=== PATIENT | female | born 1970 | race Caucasian/White ===

== ENCOUNTER → 2018-12-03 13:36 | Outpatient (CLI) | payer OTHER, SELFPAY ==
--- NOTE | 2018-12-03 13:39 | MR_ITS ---
MR shoulder LT wo con HISTORY:Left shoulder pain with limited range of motion, impingement ITS.REASON: LEFT SHOULER IMPINGEMENT ORDERING PHYSICIAN: Cleveland Boyd PATIENT AGE: 48 years Comparison: None TECHNIQUE: Standard multiplanar multiecho sequences are performed without contrast. FINDINGS: There is mild acromioclavicular arthropathy with bony hypertrophic changes at the acromioclavicular joint along with spurring of the subacromial region with resultant subacromial stenosis causing impingement upon the musculotendinous junction of the supraspinatus. There is thickening of the supraspinatus tendon distally with ill definition and increased T2 signal consistent with tendinopathy/tendinosis. There is discontinuity of the low signal intensity fibers distally consistent with at least a partial tear of the supraspinatus tendon posteriorly. There may be a few intact fibers. A full-thickness tear posteriorly cannot be excluded. The infraspinatus tendon has an unremarkable appearance as does the subscapularis and teres minor. No obvious labral tear. There is some minor subarticular cystic change of the humeral head posteriorly. No fracture or dislocation. IMPRESSION: 1. Acromioclavicular arthropathy with subacromial stenosis with impingement upon the supraspinatus tendon 2. At least a partial tear of the distal posterior aspect of the supraspinatus tendon. Cannot exclude a full-thickness tear posteriorly. A complete tear is not felt to be present
== END ==
PROVIDERS: PCP Family Medicine; Visit Provider Orthopaedic Surgery Adult Reconstructive Orthopaedic Surgery
DX: M75.42 Impingement syndrome of left shoulder (principal)
CPT/HCPCS: 73221

== ENCOUNTER → 2023-09-20 10:50 | Outpatient (CLI) | payer OTHER, SELFPAY | PROVIDERS: PCP Family Medicine; Visit Provider Specialist | DX: R20.2 Paresthesia of skin; E66.9 Obesity, unspecified; Z68.32 Body mass index [BMI] 32.0-32.9, adult; G47.33 Obstructive sleep apnea (adult) (pediatric) | CPT/HCPCS: G0399 ==

== ENCOUNTER 2024-11-29 08:10 | Outpatient (CLI) | payer MEDICARE, OTHER, SELFPAY ==
--- NOTE | 2024-11-29 08:10 | MR_ITS ---
FINAL REPORT CLINICAL HISTORY: lipoma. put marker on site. has been there for years but has gotten bigger. COMPARISON: None FINDINGS: Multiplanar MR imaging of the left clavicle was performed without and with contrast. There is a fatty mass in the left supraclavicular region accounting for enlarging mass measuring 89 x 49 x 79 mm. This is contained by thin capsule. The structure abuts the lower portion of the left SCM. No involvement of structures is seen. There are thin enhancing septations coursing through the abnormality. One septation is associated with mild nodular thickening measuring up to 2 x 4 mm, well seen on image 20 of series 10. There is no evidence of adenopathy. IMPRESSION: Benign-appearing lipoma without aggressive features accounting for enlarging mass or palpable abnormality. However, there is 1 septation associated with mild nodular thickening. MRI without and with contrast recommended to in six-months to follow-up. Reviewed, Interpreted and Dictated by Blessing Maldonado MD Transcribed by Shawna Esquivel Authenticated and [facility]
[2024-11-29] MEDS: GADOTERIDOL INJ 20ML SYRINGE 18 ML IV (09:12)
[2024-11-29] MEDS: SODIUM CHLORIDE 0.9% 10ML SYR (RAD ONLY) 10 ML IV (09:12)
== END 2024-11-29 23:59 | disposition home or self-care (01) ==
LOC: RAD 08:10
PROVIDERS: PCP Family Medicine; Visit Provider Surgery
DX: D17.9 Benign lipomatous neoplasm, unspecified (principal)
CPT/HCPCS: 73220; A9576

== ENCOUNTER 2024-12-25 09:46 | Outpatient (CLI) | payer MEDICARE, OTHER, SELFPAY ==
--- NOTE | 2024-12-25 10:20 | ECG_ITS ---
APPROVED REPORT Exam: Resting ECG HR:72 bpm ECG Measurements Heart Rate 72 AXES MT 135 P 20 QRSd 98 QRS 14 QT 366 T 10 QTc 390 Conclusion SINUS RHYTHM NORMAL ECG UNCONFIRMED REPORT Normal Electrocardiogram Electronically signed by : Jorge Luis Campbell MD 12/26/2024 09:09:50
[2024-12-25 10:23] VITALS: BMI 34.3
[2024-12-25 10:31] LABS: Basophils # 0.1 K/mm3 (0-0.2); Basophils % 0.5 % (0.1-2.0); Eosinophils # 0.1 K/mm3 (0.0-0.4); Eosinophils % 0.9 % (0.1-12.0); Hematocrit 42.4 % (37.0-47.0); Hemoglobin 13.8 g/dL (12.2-16.2); Lymphocytes # 2.7 K/mm3 (0.7-4.5); Mean Corpuscular HGB Conc 32.5 g/dL (31.8-35.4); Mean Corpuscular Hemoglobin 28.4 pg (27.0-31.2); Mean Corpuscular Volume 87.2 fl (81-99); Mean Platelet Volume 9.9 fl (7.4-10.4); Monocytes # 0.7 K/mm3 (0.1-1.0); Neutrophils % 63.3 % (37.0-80.0); Platelet Count 329 K/mm3 (142-424); Red Blood Count 4.86 M/mm3 (4.20-5.40); Red Cell Distribution Width 14.6 % (11.5-17.5); White Blood Count 9.5 K/mm3 (4.8-10.8)
[2024-12-25 10:43] LABS: Chloride 102 mmol/L (98-107); Potassium 3.7 mmoL/L (3.5-5.1); Sodium 141 mmol/L (136-145)
[2024-12-25 10:46] LABS: Anion Gap 10.7 mEq/L (5-15); Blood Urea Nitrogen 16 mg/dl (7-17); Carbon Dioxide 32 mmol/L (22.0-30.0); Creatinine Clearance Estimated 116 mL/min (50-200); Estimated Glomerular Filt Rate 75 ml/min (>60); GFR (African American) 91 ML/MIN (>60)
[2024-12-25 10:47] LABS: Calcium 11.3 mg/dl (8.4-10.2); Glucose 94 mg/dl (74-100)
== END 2024-12-25 23:59 | disposition home or self-care (01) ==
LOC: PREOP 09:48
PROVIDERS: PCP Family Medicine; Visit Provider Surgery
DX: Z01.810 Encounter for preprocedural cardiovascular examination (principal); D17.9 Benign lipomatous neoplasm, unspecified
CPT/HCPCS: 80048; 85025; 93005

== ENCOUNTER 2025-01-06 06:16 | Day surgery (SDC) | payer MEDICARE, OTHER, SELFPAY ==
[2024-12-25 11:07] VITALS: BMI 34.3
[2025-01-06] VITALS (10 sets, daily range): BP systolic 132–148; BP diastolic 64–99; PULSE 78–127; RESP 16–22; TEMP 36.2–36.7; O2SAT 93–98
[2025-01-06] MEDS: LACTATED RINGERS 1000ML 1,000 ML 25 ML IV (06:58)
[2025-01-06] MEDS: CEFAZOLIN SODIUM 2 GM in 0.9 % SODIUM CHLORIDE 100 ML IV (07:20)
[2025-01-06] MEDS: ROPIVACAINE 0.5% 30ML VIAL 150 MG (07:41)
[2025-01-06] MEDS: LIDOCAINE 1% 20ML MDV 20 ML (07:41)
--- NOTE | 2025-01-06 08:24 | P.OP_ITS ---
Date of procedure: 01/06/25 Pre-op Diagnosis:: Left supraclavicular lipoma Post-op Diagnosis:: Same Procedure performed:: Excision of complex left supraclavicular lipoma (excisional length 9 cm) with intermediate complexity closure Surgeon:: Juan Antonio Dubose MD CRIME SPECIALIST:: Todd Rodriguez Anesthesia: local and LMA Estimated blood loss (mL): 10 Clinical Note:: Patient presents for excision of presumed left supraclavicular lipoma. She is a 54-year-old female referred by Dr. Ernesto Mckay for left supraclavicular lipoma in the office on 11/14/2024. Patient states that this has been present for about 10 years. She states she was previously told this was a stress knot . She had previously undergone an ultrasound quite sometime ago not at this facility. She states that it has gradually increased over time and has caused some discomfort due to its size. I had her undergo MRI of the area which stated that it was consistent with a benign appearing lipoma without aggressive features. Operative findings:: Complex large somewhat lobulated lipoma Operative note:: Consent was obtained patient taken the operating room. She was given preoperative intravenous antibiotics. In the operating room she was placed in a supine position. General anesthesia was induced via LMA. She was positioned in area was prepped and draped in the standard surgical fashion. Boundaries of the palpable lipoma were marked with a skin marker. Incision was made in a curvilinear fashion along skin lines. Dissection was carried down through full- thickness of the dermis and superficial subcutaneous tissues. Subcutaneous fascia was incised and a relatively well-circumscribed lobulated complex lipomatous tissue was encountered. It was dissected free circumferentially using electrocautery with some use of blunt dissection. There were some deep branching vessels traversing into the lipomatous lesion. These were clipped with small hemoclips and divided. Lesion was excised in its entirety. It was oriented on the back table with a long suture at the lateral margin, short suture anterior and several clips placed at the superficial margin. Wound was irrigated. Hemostasis was achieved with electrocautery. Local anesthetic was infiltrated. Deep dermal tissues were closed with interrupted 2-0 Vicryl. Skin was closed with 4-0 Monocryl in a subcuticular fashion. Steri-Strips and bulky compressive dressing were applied. Condition: stable Disposition: PACU Complications:: None immediately apparent
--- NOTE | 2025-01-06 08:33 | EXP.ANES.CKL ---
[facility] Disclaimer: The information contained in this section may have been updated after the patient was seen, as this information can be updated by other users. Medical History Seasonal allergies CLAUDIA on CPAP History of meniscal tear Vitamin B12 deficiency (non anemic) Surgical History History of total left knee replacement History of rotator cuff surgery History of tubal ligation Family History Other Alcoholism Cancer Social History (Updated 01/06/25 @ 06:48 by Faby Reid RN) Smoking Status: Never smoker alcohol intake: never substance use type: denies use current occupational status: disabled Travel in the last 8 weeks: None household members: family housing: house marital status: Have you lived/traveled outside [place] in past 30 days?: No Contact w/someone who lives/traveled outside [place] past 30 days?: No Exposure to someone with infectious disease in past 14 days?: No Do you have a fever (greater than 100.4 F or 38 C)?: No Have you tested positive for COVID-19: No Exposed to someone with COVID-19 in past 14 days?: No Do you have a sore throat?: No Do you have a cough?: No Do you have any weakness?: No Are you experiencing any nausea/vomitting?: No Do you have any diarrhea?: No Are you experiencing any unusual bleeding?: No Do you have any muscle aches/pain?: No Do you have any abdominal pain?: No Are you experiencing loss of taste or smell?: No [facility] Anesthesia Checklist Patient Identification Patient Identification: Arm Band and Family Structural Data Admitted From: Home Planned Operative Procedure/s: Excision supraclavicular lipoma. Consent for Planned Operative Procedure(s) Verified: Yes Verified Documents: Surgical Consent and History and Physical NPO Status Verified Time NPO: 00:00 Additional verifications Patient : No Anesthesia Reactions: No Hx Blood Transfusions: No Blood Transfusion Reaction: No Cephalosporin Allergy: No Previous Colonoscopy: No Airway Assessment Mallampati Score:: Class III C-Spine Mobility Assessed: Yes TMJ Mobility Assessed: Yes Dentition: Good Dentition Neurological Assessment Level of Consciousness: Awake, Appropriate and Follows Commands Hx Seizures: No Numbness or tingling in extremities: No Anesthesia Plan Anesthesia Risk discussed: Yes ASA Class: II Anesthesia Type: MAC Preoperative Comments Pre-Operative Comments: Increased weight.
--- NOTE | 2025-01-06 08:35 | EXP.ANES.I ---
[facility] Anesthesia Record Part I Anesthesia Record I Intake, IV Amount: 300 Hydration: Adequate Estimated blood loss (mL): 10 Urine output (mL): 0 Blood Products used (#): none Blood Pressure: 147/99 SaO2: 95 Pulse Rate: 127 Airway Patency: Patent Respiratory Rate: 22 Temperature: 98.0 F Patient is:: Drowsy and Stable
--- NOTE | 2025-01-06 14:44 | P.PNANES_ITS ---
[facility] Anesthesia Record Part II Anesthesia Record Part II Discharge Time: 08:55 Destination: Surgical Day Care (OP Surgery) PACU nurse assessment reviewed?: Yes Patient Condition:: Good Anesthesia Complications:: None Swallowing reflex intact?: Yes Airway Patency: Patent Cyanosis?: No Blood Pressure: 144/92 SaO2: 96 Respiratory Rate: 16 Pulse Rate: 104 Temperature: 98 F Mental Status: Alert & Oriented Pain level:: 0 Nausea and/or vomitting:: None Intake, IV Amount: 0 Hydration: Adequate
== END 2025-01-06 09:40 | disposition home or self-care (01) ==
PROVIDERS: PCP Family Medicine; Visit Provider Surgery
PROC: (CPT 21552; principal; 2025-01-06 07:30)
DX: D17.0 Benign lipomatous neoplasm of skin and subcutaneous tissue of head, face and neck (principal); R52 Pain, unspecified
CPT/HCPCS: 21552; 96374; J0690; J1100; J2250; J2405; J3010; J7120